=== PATIENT | male | born 1995 | race American Indian/Alaskan Native ===

== ENCOUNTER 2017-03-03 10:11 | Emergency (ER) | payer OTHER ==
[2017-03-03 10:27] VITALS: BP 131/72
--- NOTE | 2017-03-03 13:13 | Emergency Department Report ---
- General Chief complaint: Extremity Injury, Lower Stated complaint: LEFT SMALL TOE PAIN Time Seen by Provider: 03/03/17 13:01 Source: patient Mode of arrival: Ambulatory Limitations: No Limitations - History of Present Illness Initial comments: Pt reports L little toe pain for 6 months. MD complaint: lesion -: Gradual, month(s) (6) Tetanus Up to Date: yes Location: L foot Severity: mild Consistency: constant Improves with: none Worsens with: none Context: none Associated symptoms: denies other symptoms Treatments Prior to Arrival: none - Related Data Previous Rx's Medication Instructions Recorded Last Taken Type [place]/Callus Cushion [Ludwig's Wool] 1 each TP DAILY #1 each 03/03/17 Unknown Rx Salicylic Acid [[place] & Callus 15 ml TP PRN #1 liquid 03/03/17 Unknown Rx Remover] Allergies Allergy/AdvReac Type Severity Reaction Status Date / Time No Known Allergies Allergy Unverified 03/03/17 10:27 Abscess Boil HPI - HPI Chief Complaint: Extremity Injury, Lower Stated Complaint: LEFT SMALL TOE PAIN Time Seen by Provider: 03/03/17 13:01 Home Medications: Previous Rx's Medication Instructions Recorded Last Taken Type [place]/Callus Cushion [Ludwig's Wool] 1 each TP DAILY #1 each 03/03/17 Unknown Rx Salicylic Acid [[place] & Callus 15 ml TP PRN #1 liquid 03/03/17 Unknown Rx Remover] Allergies/Adverse Reactions: Allergies Allergy/AdvReac Type Severity Reaction Status Date / Time No Known Allergies Allergy Unverified 03/03/17 10:27 ED Review of Systems ROS: Stated complaint: LEFT SMALL TOE PAIN Other details as noted in HPI Comment: All other systems reviewed and negative Constitutional: denies: chills, fever Eyes: denies: eye pain, eye discharge, vision change ENT: denies: ear pain, throat pain Respiratory: denies: cough, shortness of breath, wheezing Cardiovascular: denies: chest pain, palpitations Endocrine: no symptoms reported Gastrointestinal: denies: abdominal pain, nausea, diarrhea Genitourinary: denies: urgency, dysuria Musculoskeletal: denies: back pain, joint swelling, arthralgia Skin: as per HPI, lesions. denies: rash Neurological: denies: headache, weakness, paresthesias Psychiatric: denies: anxiety, depression Hematological/Lymphatic: denies: easy bleeding, easy bruising ED Past Medical Hx - Past Medical History Previous Medical History?: No - Surgical History Past Surgical History?: No - Social History Smoking Status: Former Smoker Substance Use Type: None - Medications Home Medications: Home Medications Medication Instructions Recorded Confirmed Last Taken Type [place]/Callus Cushion [Ludwig's Wool] 1 each TP DAILY #1 each 03/03/17 Unknown Rx Salicylic Acid [[place] & Callus 15 ml TP PRN #1 liquid 03/03/17 Unknown Rx Remover] ED Physical Exam - General Limitations: No Limitations General appearance: alert, in no apparent distress - Head Head exam: Present: atraumatic, normocephalic - Eye Eye exam: Present: normal appearance - ENT ENT exam: Present: mucous membranes moist - Neck Neck exam: Present: normal inspection - Respiratory Respiratory exam: Present: normal lung sounds bilaterally. Absent: respiratory distress - Cardiovascular Cardiovascular Exam: Present: regular rate, normal rhythm. Absent: systolic murmur, diastolic murmur, rubs, gallop - GI/Abdominal GI/Abdominal exam: Present: soft, normal bowel sounds - Rectal Rectal exam: Present: deferred - Extremities Exam Extremities exam: Present: normal inspection - Back Exam Back exam: Present: normal inspection - Neurological Exam Neurological exam: Present: alert, oriented X3 - Psychiatric Psychiatric exam: Present: normal affect, normal mood - Skin Skin exam: Present: warm, dry, intact, normal color, other (likely soft corn between L 4th and 5th toes. No infection. ). Absent: rash ED Course Vital Signs 03/03/17 10:19 Temperature 98.3 F Pulse Rate 61 Respiratory 16 Rate Blood Pressure 131/72 O2 Sat by Pulse 100 Oximetry - Reevaluation(s) Reevaluation #1: 03/03/17 13:10 Pt is in NAD and stable for d/c. ED Medical Decision Making - Medical Decision Making Advised he needs to follow up with PCP. Supportive care discussed. - Differential Diagnosis corn, callus, blister Critical care attestation.: If time is entered above; I have spent that time in minutes in the direct care of this critically ill patient, excluding procedure time. ED Disposition Clinical Impression: [place] of foot Disposition: DC-01 TO HOME OR SELFCARE Is pt being admited?: No Condition: Stable Instructions: Skin Adhesive Care (ED) Additional Instructions: Corns and calluses are areas of thick skin that result form excessive pressure or friction over a crystal prominence. When these areas develop on the bottom of the foot they are called calluses. When they occur on the top of the toes they are called corns. They can also occur between the toes, the back of the heels and the top of the foot. The thickening of the skin is a normal body response to pressure or friction. Often times they are associated with a projection of bone. Not all areas of thickened skin are corns or calluses. Planter warts, inclusion cysts and porokeratoses also cause a discreet thickening of the skin that resembles corns and calluses. Calluses The most common area for the formation of calluses on the bottom of the foot is in the area of the ball of the foot. This is a weight bearing area where the long bones behind the toes called metatarsals, bear the greatest amount of weight and pressure. If one or more of these long bones (metatarsals) is out of alignment then excessive pressure is generated in the area producing a callus. The callused area can be very discreet and have a "core" or they can be more dispersed covering a larger area. These areas can become quite painful as the skin thickens. People who have diabetes are at risk of these areas breaking down producing sores or ulcerations that can become infected. People with diabetes should not try home remedies and should see a doctor for the treatment. Treatment of Calluses There are numerous over the counter treatments for corns and calluses. Some of these remedies have an acid in them that burn the callus off. Care should be taken when using these medications. If used incorrectly they can cause a chemical burn to the skin. Additionally these remedies are only temporary because the source of the pressure has not been alleviated. Professional treatment consists of using a special shoe inserts called functional orthotics that corrects foot function. In certain instances surgery may be recommended. Surgery is directed at correcting the alignment of the offending bone. Cutting out the callus will only make the condition worse if the underling crystal problem is not corrected. Metatarsal surgery is discussed in another section. Corns Corns are areas of thick skin that most commonly occur on the top of the toes. Generally there is an associated hammertoe deformity, which causes the toes to rub on the top of the shoes. Professional treatment is directed at correcting the hammertoe deformity. Small corns can also occur on the side of the little toe next to the toenail. A small bone spur causes this problem. Professional treatment consists of removing the bone spur. Bone spurs also cause corns between the toes. Soft corns are areas of white moist skin between the toes. They most commonly occur between the fourth and fifth toes. They can be very painful and if not treated can form small ulcerations or sinus tracts that can become infected. Acute athlete's foot can mimic the soft corn. The soft corn is due to an irregularity in the shape of the bone in the fourth or fifth toes. Treatment Of Soft Corns Home treatment should be directed at reducing the pressure between the toes with cotton or a foam cushion and using an antibiotic ointment to reduce the risk of infection. Over the counter corn removers should never be used in this area because of the risk of increased damage to the skin resulting in infection. Professional treatment consists of removing the irregular shaped bone that causes the development of the corn. Some patients prefer that the doctor simply trim down and pad the calloused areas. This is a common form of treatment in patients with diabetes. See correcting soft corns, removing bone spurs, and hammertoe surgery. Prescriptions: [place]/Callus Cushion [Ludwig's Wool] 1 each TP DAILY #1 each Salicylic Acid [[place] & Callus Remover] 15 ml TP PRN #1 liquid Referrals: MIRIAM STEINBERG MD [Referring] - 3-5 Days FELICIANO HERNÁNDEZ MD [Staff Physician] - 3-5 Days Time of Disposition: 13:13
== END 2017-03-03 13:45 | disposition home or self-care (01) ==
LOC: ED 10:11
DX: L84 Corns and callosities (principal); Z87.891 Personal history of nicotine dependence
CPT/HCPCS: 99282